=== PATIENT | male | born 1950 | race Caucasian/White ===

== ENCOUNTER → 2017-04-23 | Day surgery (SDC) | payer MEDICARE, OTHER ==
[~2017-04-23] MED LIST: BUPIVACAINE HCL PF 0.75% 30 ML VIAL ONE; KETOROLAC TROMETHAMINE 30 MG/ML (IVP) VIAL IV PUSH ONE; LACTATED RINGER'S 1000 ML INJ 1,000 ML ONE; LIDOCAINE 1.5%/EPINEPHrine 1:200,000 PF SOLN 30 ML AMP ONE; MIDAZOLAM HCL 5 MG/ML VIAL (1 ML) ONE; ONDANSETRON HCL 4 MG/2 ML VIAL IV PUSH ONE; PROPOFOL 200 MG/20 ML AMP IV ONE; ceFAZolin 2 GM PREMIX 50 ML ONE
--- NOTE | 2017-04-23 14:47 | MP ---
cc: ELSY KAUFMAN DATE OF SURGERY 04/23/2017 PREOPERATIVE DIAGNOSIS Left shoulder rotator cuff tear, left shoulder impingement syndrome, left shoulder labral tear. POSTOPERATIVE DIAGNOSES Left shoulder rotator cuff tear, left shoulder impingement syndrome, left shoulder labral tear. PROCEDURE Left shoulder arthroscopic rotator cuff repair, left shoulder arthroscopic subacromial decompression, left shoulder arthroscopic extensive debridement of labral SLAP tear. SURGEON Dr. Elsy Kaufman LIMITED RADIOLOGY TECHNICIAN ARINA Clarke ANESTHESIA General with and anterior interscalene block. ESTIMATED BLOOD LOSS Less than 10 cc COMPLICATIONS None IMPLANTS USED Arthrex JUSTIFICATION This patient is a 66-year male who injured his left shoulder. He has had persistent pain in regards to his condition and failed conservative treatment. Clinical exam, as well as MRI confirmed the above-named findings. The patient was counseled as to the risks, benefits and alternatives to the above-named proposed surgical procedure and he did wish to proceed with surgery. PROCEDURE IN DETAIL A written consent was obtained. The patient identified by name, taken to the operating room, placed supine on the operating room table and general anesthesia was administered, as well as two grams of IV Ancef. He did receive a preoperative anterior interscalene block. The patient was carefully turned to a right lateral decubitus position and a lateral arm roll was placed. All bony prominences and pressure points were well padded. The left arm was carefully placed with an arthroscopic arm benson and 10 pounds of traction applied. The left shoulder prepped and draped using Isopropyl alcohol, Hibiclens solution and DuraPrep solution. After a time-out was performed, a standard posterior and anterior glenohumeral arthroscopic portal was established. The glenohumeral joint revealed evidence of labral tearing along the anterior superior and posterior portions. The tear did extend into a portion of the biceps. An arthroscopic shaver was introduced from the anterior portal and extensive debridement of the labrum was performed to include the anterior, superior and posterior portions from the 3 o'clock, 12 o'clock and 9 o'clock positions. The debridement also extended into portions of the biceps tendon. No significant chondromalacia of the glenohumeral joint was noted. Attention was turned to the subacromial space where there is evidence of impingement with bursitis. An arthroscopic shaver was introduced from the lateral portal. A cervical decompression was performed. The shaver was used to perform extensive bursectomy. The arthroscopic bur was used for the acromioplasty and the cautery device was used to release the coracoacromial ligament. There is evidence of a full-thickness tear along the anterior leading edge of the supraspinatus tendon. An arthroscopic bur was used to decorticate the greater tuberosity in preparation for rotator cuff tendon repair. An Arthrex scorpion device was used to shuttle a #2 FiberTape suture in a horizontal mattress pattern as well as #2 FiberLink sutures through the torn tendon. These sutures were then placed through the eyelet of an Arthrex 4.75 mm Bio SwiveLock anchor. The sutures were tensioned and the anchor was inserted in the greater tuberosity. The repair was probed and noted to have good stability and fixation. At the conclusion of the surgical procedures, the arthroscopic portals were closed with 3-0 Prolene suture. Sterile dressings applied. The patient tolerated the procedure with no intraoperative complications noted. Carlos Molina, Physician Room Service Clerk Certified, was present during the entire procedure to include patient positioning and the procedure itself. The medical necessity of a physician marketing assistant was indicated in this case due to te complexity of the procedure. He assisted with appropriate manipulation of the arm and also manipulation of the camera. He assisted with shuttling of sutures and also implantation of suture anchor for purposes of rotator cuff tendon repair. MD JOSSE Jackson/HILARY /10:41 AM /2:27 PM
== END | disposition home or self-care (01) ==
LOC: ESDC 07:51
PROVIDERS: ATTEND Orthopaedic Surgery Sports Medicine
DX: M75.122 Complete rotator cuff tear or rupture of left shoulder, not specified as traumatic (principal); M75.42 Impingement syndrome of left shoulder; S43.402A Unspecified sprain of left shoulder joint, initial encounter
CPT/HCPCS: 01630; 01991; 29823; 29826; 29827; 64417; C1713; J0690; J1885; J2250; J2405; J3010; J7120